=== PATIENT | male | born 1985 | race American Indian/Alaskan Native ===

== ENCOUNTER 2017-06-29 09:56 | Emergency (ER) | payer SELFPAY ==
--- NOTE | 2017-06-29 10:37 | XRay Report ---
LEFT SHOULDER, 3 views: History: Pain, deformity, trauma. The distal left clavicle is elevated with respect to the acromion by 1 cm suggesting injury to the acromioclavicular ligaments. There is no evidence for fracture, dislocation or degenerative changes. The soft tissues are unremarkable. IMPRESSION: AC joint ligament injury/rupture is suspected. Please correlate with the patient.
[2017-06-29] MEDS ORDERED: ZOFRAN ODT PO ONE (10:46)
[2017-06-29] MEDS ORDERED: MILK OF MAGNESIA PO ONE (10:47)
[2017-06-29 11:13] LABS: Basophils # (Auto) 0.1 K/mm3 (0.0-0.1); Basophils % (Auto) 0.8 % (0.0-1.8); Eosinophils % (Auto) 0.5 % (0.0-4.3); Hematocrit 42.8 % (35.5-45.6); Lymphocytes # (Auto) 2.4 K/mm3 (1.2-5.4); Lymphocytes % (Auto) 34.6 % (13.4-35.0); Mean Corpuscular HGB Conc 33 % (32-34); Mean Corpuscular Hemoglobin 30 pg (28-32); Mean Corpuscular Volume 93 fl (84-94); Monocytes # (Auto) 0.5 K/mm3 (0.0-0.8); Monocytes % (Auto) 6.7 % (0.0-7.3); Platelet Count 328 K/mm3 (140-440); Red Blood Count 4.61 M/mm3 (3.65-5.03); Red Cell Distribution Width 13.6 % (13.2-15.2)
[2017-06-29 11:28] LABS: Alanine Aminotransferase 17 units/L (7-56); Albumin 4.1 g/dL (3.9-5); BUN/Creatinine Ratio 10; Blood Urea Nitrogen 8 mg/dL (9-20); Calcium 9.1 mg/dL (8.4-10.2); Hemolysis Index 10; Lipase 14 units/L (13-60)
--- NOTE | 2017-06-29 11:55 | Emergency Department Report ---
[facility] - Documentation Documentation: 32-year-old [place] female coming in is epigastric pain he states that her pain is accompanied by nausea, vomiting. Patient has not taking any medication at home for his symptoms. he denies any exacerbating factors. he denies any alleviating factors. he denies any recent travel, or unusual foods. he denies any sick contacts. Patient also complaint of left shoulder pain, felt a pop 2 days ago while lifting objects. MD Complaint: abdominal pain -: Gradual Location: Epigastric Radiation: none Migration to: no migration Severity scale (0 -10): 7 Quality: sharp Improves With: nothing Associated Symptoms: nausea, vomiting, chills complaint: Left shoulder pain
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
[2017-06-29] MEDS ORDERED: PHENERGAN PO ONE (12:20)
[2017-06-29] MEDS ORDERED: LIDOCAINE VISCOUS 2% PO ONE (12:20)
[2017-06-29] MEDS ORDERED: ALUM-MAG HYDROX-SIMETH 200-200-20MG/5ML PO ONE (12:20)
[2017-06-29] MEDS ORDERED: NORCO 7.5/325 PO ONE (12:21)
[2017-06-29] MEDS ORDERED: TORADOL IM ONE (12:21)
[2017-06-29 12:48] LABS: Bilirubin,Urine NEG (Negative); Blood,Urine NEG (Negative); Color,Urine Yellow (Yellow); Protein,Urine <15 mg/dL mg/dL (Negative); Urobilinogen,Urine < 2.0 mg/dL (<2.0)
[2017-06-29 13:06] LABS: Amphetamine Screen,Urine PRESUMPTIVE NEGATIVE; Benzodiazepines Screen,Urine PRESUMPTIVE NEGATIVE; Cocaine Screen,Urine PRESUMPTIVE NEGATIVE; Methadone Screen,Urine PRESUMPTIVE NEGATIVE; Opiate Screen,Urine PRESUMPTIVE NEGATIVE
[2017-06-29 13:26] LABS: Cannabinoid Screen,Urine PRESUMPTIVE POSITIVE
[2017-06-29 14:15] VITALS: BP 134/84
== END 2017-06-29 14:20 | disposition home or self-care (01) ==
LOC: ED 09:56
DX: M24.212 Disorder of ligament, left shoulder (principal); R10.13 Epigastric pain; R11.2 Nausea with vomiting, unspecified; F12.10 Cannabis abuse, uncomplicated; R82.5 Elevated urine levels of drugs, medicaments and biological substances; F17.200 Nicotine dependence, unspecified, uncomplicated
CPT/HCPCS: 29105; 36415; 73030; 80053; 80307; 81001; 83690; 85025; 96372; 99284; J1885; Q0162